=== PATIENT | female | born 1955 | race African-American/Black ===

== ENCOUNTER 2020-10-11 05:08 | Day surgery (SDC) | payer BC, OTHER ==
[2020-10-10 13:21] VITALS: BMI 33.3
[2020-10-11] MEDS ORDERED: ALBUTEROL SO4 HFA INHALER IH ONE (08:30)
[2020-10-11 08:41] VITALS: TEMP 97.2
[2020-10-11 09:09] VITALS: BP 144/93; PULSE 16
== END 2020-10-11 09:20 | disposition home or self-care (01) ==
LOC: JASU-ENDO 05:08
PROVIDERS: ATTEND Internal Medicine Gastroenterology
PROC: 0DB78ZX Excision of Stomach, Pylorus, Via Natural or Artificial Opening Endoscopic, Diagnostic (ICD-10-PCS; principal; 2020-10-11 08:45)
DX: K29.60 Other gastritis without bleeding (principal); K21.9 Gastro-esophageal reflux disease without esophagitis; K31.89 Other diseases of stomach and duodenum
CPT/HCPCS: 88305-TC; 88342-TC

== ENCOUNTER → 2023-10-27 | Day surgery (SDC) | payer OTHER, BC | END | disposition home or self-care (01) | LOC: FMAMMOTONE 12:16 | PROVIDERS: ATTEND Obstetrics & Gynecology | PROC: 0H9U3ZX Drainage of Left Breast, Percutaneous Approach, Diagnostic (ICD-10-PCS; principal; 2023-10-27) | DX: D24.2 Benign neoplasm of left breast (principal); N64.89 Other specified disorders of breast; R92.1 Mammographic calcification found on diagnostic imaging of breast | CPT/HCPCS: 19081; 76098-TC-FY; 88305-TC ==

== ENCOUNTER 2024-04-11 04:15 | Inpatient (IN) | payer OTHER, BC ==
[2024-04-08 15:32] VITALS: BMI 27.4
[2024-04-11] MEDS ORDERED: PHENAZOPYRIDINE HCL 100 MG TABLET (FP) ONE (13:03)
[2024-04-11] MEDS: PHENAZOPYRIDINE HCL 100 MG TABLET (FP) PO ONE (13:09)
[2024-04-11] MEDS ORDERED: ONDANSETRON 4 MG/2 ML VIAL IVPUSH PRN ×2 (14:30→19:00)
[2024-04-11] MEDS: CLINDAMYCIN 600 MG PREMIX BAG IVPB ONE (15:40)
[2024-04-11] MEDS ORDERED: HYDROmorphone HCl 2 MG/ML VIAL ONE (17:03)
[2024-04-11] MEDS ORDERED: SUGAMMADEX SODIUM 200 MG/2 ML VIAL ONE (17:13)
[2024-04-11] MEDS ORDERED: KETOROLAC TROMETHAMINE 30 MG/1 ML VIAL ONE (17:54)
[2024-04-11] MEDS ORDERED: ONDANSETRON 4 MG/2 ML VIAL ONE (17:54)
[2024-04-11] MEDS ORDERED: SEVOFLURANE 250 ML BTL ONE (18:03)
[2024-04-11] MEDS ORDERED: ACETAMINOPHEN INJECTION 100 ML ONE (18:04)
[2024-04-11] MEDS ORDERED: CLINDAMYCIN 600MG PREMIX IVPB 1,200 MG/100 ML BAG IVPB ONE (18:05)
[2024-04-11] MEDS ORDERED: DEXAMETHASONE SOD PHOSPHATE 4 MG/1 ML VIAL ONE (18:16)
[2024-04-11] MEDS ORDERED: PROPOFOL 20 ML ONE (18:48)
[2024-04-11] MEDS ORDERED: DOCUSATE SODIUM 100 MG CAPSULE (FP) PO PRN (19:00)
[2024-04-11] MEDS ORDERED: oxyCODONE HCL 5 MG TABLET PO PRN ×4 (19:00→19:04)
[2024-04-11] MEDS ORDERED: SIMETHICONE 80 MG TAB.CHEW (FP) PO PRN (19:00)
[2024-04-11] MEDS ORDERED: BISACODYL 5 MG TABLET.DR (FP) PO PRN (19:00)
[2024-04-11] MEDS ORDERED: ZOLPIDEM TARTRATE 5 MG TABLET PO PRN (19:07)
[2024-04-11] MEDS: LABETALOL HCL 200 MG TABLET (FP) PO ONE (22:24)
[2024-04-11] MEDS ORDERED: SODIUM CHLORIDE 1,000 ML IV SCH (22:30)
[2024-04-11] MEDS: INSULIN ASPART SLIDING SCALE (NOVOLOG) 1 VIAL SQ SCH (22:33)
[2024-04-11 23:21] LABS: HEMATOCRIT 33.7 % (32.4-45.2); HEMOGLOBIN 10.7 GM/dL (10.7-15.3); MCH 26.5 pg (25.7-33.7); MCHC 31.9 g/dl (32.0-36.0); MEAN CELL VOLUME 83.1 fl (80-96); MEAN PLT VOLUME 7.7 fl (7.5-11.1); PLATELET COUNT 264 10^3/uL (134-434); RBC 4.05 M/mm3 (3.60-5.2); RDW 16.1 % (11.6-15.6)
[2024-04-11] MEDS: MONTELUKAST NA 10 MG TABLET PO SCH (23:25)
[2024-04-11 23:49] LABS: POTASSIUM 3.4 mmol/L (3.5-5.1)
[2024-04-11 23:51] LABS: BLOOD UREA NITROGEN 12.6 mg/dL (7-18); CALCIUM 7.9 mg/dL (8.5-10.1)
[2024-04-11 23:55] LABS: CREATININE 0.9 mg/dL (0.55-1.3)
[2024-04-12] MEDS ORDERED: CEFAZOLIN 1 GM/D5W 1 GM/50 ML BAG IVPB SCH
[2024-04-12] MEDS: CLINDAMYCIN 900 MG PREMIX IVPB 900 MG/50 ML BAG IVPB SCH (00:01)
[2024-04-12] MEDS: ACETAMINOPHEN 1000 MG/100 ML BAG IVPB SCH (00:01)
[2024-04-12] MEDS: ACETAMINOPHEN 1000 MG/100 ML BAG IVPB ONE (01:03)
[2024-04-12] MEDS: amLODIPine BESYLATE 2.5 MG TABLET (FP) PO SCH (01:03)
[2024-04-12] MEDS: TRANEXAMIC ACID 1000 MG/10 ML VIAL IVPUSH ONE (03:12)
[2024-04-12] MEDS: PANTOPRAZOLE 40 MG TABLET PO SCH (03:12)
[2024-04-12] MEDS: LACTATED RINGERS SOLUTION 1,000 ML IV SCH (03:13)
[2024-04-12] MEDS: metFORMIN HCL 500 MG TABLET (FP) PO SCH (03:13)
[2024-04-12] MEDS: CEFAZOLIN 2 GM in DEXTROSE 5%-WATER - 100 ML IVPB ONE (03:13)
[2024-04-12] MEDS: IBUPROFEN 800 MG/8 ML IJ IVPB SCH (03:15)
[2024-04-12 08:19] LABS: HEMATOCRIT 30.8 % (32.4-45.2); MCH 26.9 pg (25.7-33.7); MCHC 32.6 g/dl (32.0-36.0); MEAN CELL VOLUME 82.6 fl (80-96); MEAN PLT VOLUME 7.6 fl (7.5-11.1); PLATELET COUNT 251 10^3/uL (134-434); RBC 3.73 M/mm3 (3.60-5.2); RDW 16.2 % (11.6-15.6); WHITE BLOOD COUNT 12.6 K/mm3 (4.0-10.0)
[2024-04-12 08:41] LABS: POTASSIUM 3.9 mmol/L (3.5-5.1)
[2024-04-12 08:44] LABS: CALCIUM 8.5 mg/dL (8.5-10.1)
[2024-04-12 08:45] LABS: BLOOD UREA NITROGEN 14.6 mg/dL (7-18)
[2024-04-12 08:49] LABS: CREATININE 1.2 mg/dL (0.55-1.3)
[2024-04-12] MEDS: ENOXAPARIN NA (PORCINE) 40 MG/0.4 ML DISP.SYRIN SQ SCH (09:48)
[2024-04-12] MEDS: DONEPEZIL HCL 5 MG TABLET (FP) PO SCH (09:48)
[2024-04-12] MEDS: ACETAMINOPHEN 500 MG TABLET (FP) PO SCH (12:51)
[2024-04-12] MEDS: IBUPROFEN 600 MG TABLET (FP) PO SCH (19:00)
[2024-04-13 07:13] LABS: HEMATOCRIT 30.8 % (32.4-45.2); HEMOGLOBIN 10.1 GM/dL (10.7-15.3); MCH 27.3 pg (25.7-33.7); MCHC 32.6 g/dl (32.0-36.0); MEAN CELL VOLUME 83.6 fl (80-96); PLATELET COUNT 243 10^3/uL (134-434); RBC 3.69 M/mm3 (3.60-5.2); RDW 16.7 % (11.6-15.6)
[2024-04-13 07:56] LABS: POTASSIUM 3.8 mmol/L (3.5-5.1)
[2024-04-13 07:57] LABS: CALCIUM 8.5 mg/dL (8.5-10.1)
[2024-04-13 07:58] LABS: BLOOD UREA NITROGEN 15.4 mg/dL (7-18)
[2024-04-13 08:01] LABS: CREATININE 1.1 mg/dL (0.55-1.3)
[2024-04-13 08:28] VITALS: BP 131/82; PULSE 85; RESP 17; TEMP 98.1
== END 2024-04-13 09:20 | disposition home or self-care (01) | DRG 743 ==
LOC: JASU-SURG 04:15 → J2C 19:00 → J3W 21:23
PROVIDERS: ADMIT Obstetrics & Gynecology; ATTEND Obstetrics & Gynecology
PROC: 0DNW4ZZ Release Peritoneum, Percutaneous Endoscopic Approach (ICD-10-PCS; 2024-04-11)
PROC: 8E0W4CZ Robotic Assisted Procedure of Trunk Region, Percutaneous Endoscopic Approach (ICD-10-PCS; 2024-04-11)
PROC: 0UT94ZZ Resection of Uterus, Percutaneous Endoscopic Approach (ICD-10-PCS; principal; 2024-04-11 14:45)
PROC: 0UT74ZZ Resection of Bilateral Fallopian Tubes, Percutaneous Endoscopic Approach (ICD-10-PCS; 2024-04-11 14:45)
DX: D25.2 Subserosal leiomyoma of uterus (principal); R10.2 Pelvic and perineal pain; N95.0 Postmenopausal bleeding; N80.03 Adenomyosis of the uterus; K66.0 Peritoneal adhesions (postprocedural) (postinfection)
CPT/HCPCS: 36415; 80048; 82962; 85027; 86850; 86900; 86901; 88305-TC; 88307-TC; 94010; 94760; J0131